=== PATIENT | female | born 1970 | race Two or more races ===

== ENCOUNTER 2020-02-24 11:25 | Outpatient (CLI) | payer OTHER | END 2020-02-24 11:30 | disposition home or self-care (01) | LOC: SONOGRAMA 11:25 | PROVIDERS: ATTEND Pathology Anatomic Pathology & Clinical Pathology | DX: D34 Benign neoplasm of thyroid gland (principal) ==

== ENCOUNTER 2020-06-03 12:34 | Emergency (ER) | payer OTHER ==
[~2020-06-03] VITALS: Ht 170.2 cm; Wt 86.2 kg
== END 2020-06-03 21:15 | disposition home or self-care (01) ==
LOC: ER 12:34
DX: R10.2 Pelvic and perineal pain (principal)

== ENCOUNTER → 2020-07-28 | Outpatient (CLI) | payer OTHER | END | disposition home or self-care (01) | LOC: MRI 14:15 | DX: M54.12 Radiculopathy, cervical region (principal); M50.30 Other cervical disc degeneration, unspecified cervical region | CPT/HCPCS: 72141 ==